=== PATIENT | female | born 1965 | race Caucasian/White ===

== ENCOUNTER 2019-04-20 10:23 | Emergency (ER) | payer MEDICARE ==
[2019-04-20 10:32] VITALS: Wt 129.5 kg
[2019-04-20] MEDS ORDERED: ATIVAN0.5 MG PO (10:34)
[2019-04-20] MEDS ORDERED: CELEXA40 MG PO (10:34)
[2019-04-20] MEDS ORDERED: BLEPHAMIDE S.O3.5 GM EACH EAR (10:34)
[2019-04-20] MEDS ORDERED: LITHOBID 300 M300 MG PO (10:35)
[2019-04-20] MEDS ORDERED: OXYBUTYNIN CHLOR5 M1 PO (10:35)
[2019-04-20] MEDS ORDERED: ZYRTEC10 MG PO (10:36)
[2019-04-20] MEDS ORDERED: CRESTOR40 MG PO (10:36)
[2019-04-20] MEDS ORDERED: OMEPRAZOLE40 MG PO (10:36)
[2019-04-20] MEDS ORDERED: TOPROL XL50 MG PO (10:36)
[2019-04-20] MEDS ORDERED: ZETIA10 MG PO (10:36)
[2019-04-20] MEDS ORDERED: [UNRECOGNIZED DRUG - OTHER] (10:37)
[2019-04-20] MEDS ORDERED: AMBIEN10 MG PO (10:37)
[2019-04-20] MEDS ORDERED: VRAYLAR3 MG PO (10:37)
[2019-04-20] MEDS ORDERED: BAYER CHEWABLE81 MG (10:38)
[2019-04-20 11:06] LABS: BASOPHILS 0.6 % (0-2); BILIRUBIN NEGATIVE (NEGATIVE); EOSINOPHILS 1.2 % (0-7); GLUCOSE NEGATIVE (NEGATIVE); HEMATOCRIT 41.6 % (36.0-48.0); HEMOGLOBIN 13.7 g/dL (12-16); IMMATURE GRANULOCYTES 0.1 % (0-5); KETONE NEGATIVE (NEGATIVE); LYMPHOCYTES 41.7 % (15-50); MCH 30.4 pg (26.0-34.0); MCHC 32.9 g/dL (31.0-37.0); MCV 92.4 fL (80.0-100.0); MEAN PLATELET VOLUME 10.4 fL (7.4-10.4); MONOCYTES 7.1 % (2-11); NEUTROPHILS 49.3 % (40-80); NITRITE NEGATIVE (NEGATIVE); PLATELET COUNT 214 10x3/uL (130-400); RDW 14.2 % (11.5-14.5); SPECIFIC GRAVITY 1.015 (1.005-1.020); UROBILINOGEN NORMAL (NORMAL); WBC 7.8 10x3/uL (4.8-10.8)
[2019-04-20 11:18] LABS: ANION GAP 11.1 mmol/L (8-16); CARBON DIOXIDE 27.2 mmol/L (21.0-32.0); POTASSIUM - SERUM 4.3 mmol/L (3.5-5.1)
[2019-04-20 11:24] LABS: ALBUMIN 3.4 g/dL (3.4-5.0); BILIRUBIN - TOTAL 0.32 mg/dL (0.2-1.3); PROTEIN - SERUM 6.4 g/dL (6.4-8.2)
[2019-04-20] MEDS ORDERED: AUGMENTIN 875-11 TAB PO (11:48)
[2019-04-20 12:02] VITALS: BP 129/62
== END 2019-04-20 12:04 | disposition home or self-care (01) ==
LOC: D.ER 10:23
PROVIDERS: Emergency Medicine
DX: J32.9 Chronic sinusitis, unspecified (principal); H66.91 Otitis media, unspecified, right ear; I10 Essential (primary) hypertension; J44.9 Chronic obstructive pulmonary disease, unspecified; K21.9 Gastro-esophageal reflux disease without esophagitis; E11.9 Type 2 diabetes mellitus without complications